=== PATIENT | male | born 1950 | race Caucasian/White ===

== ENCOUNTER 2024-07-08 21:32 | Emergency (ER) | payer MEDICARE ==
[~2024-07-08] VITALS: Ht 213.4 cm; Wt 61.4 kg
[2024-07-08] MEDS: LIDOcaine 1% W/epiNEPHrine 1:100,000 20ml vial IJ ONE (22:10)
[2024-07-08] MEDS: TETanus/Pertussis (Acell)/Diphther VAC/PF (Tdap-Adult) 0.5ml syringe IMVAC ONE (22:35)
[2024-07-08 22:38] VITALS: BP 142/88; PULSE 68; RESP 14; TEMP 98.6; O2SAT 97
== END 2024-07-08 22:38 | disposition home or self-care (01) ==
LOC: ER 21:32
DX: S01.01XA Laceration without foreign body of scalp, initial encounter (principal); S09.8XXA Other specified injuries of head, initial encounter; Z88.2 Allergy status to sulfonamides; W01.0XXA Fall on same level from slipping, tripping and stumbling without subsequent striking against object, initial encounter; Y93.89 Activity, other specified; Y92.89 Other specified places as the place of occurrence of the external cause; Y99.8 Other external cause status
CPT/HCPCS: 12002; 99284; A6402; A6446; Z7610; 90715; A6449